=== PATIENT | female | born 1975 | race Caucasian/White ===

== ENCOUNTER 2021-08-16 12:25 | Emergency (ER) | payer OTHER ==
[2021-08-16 13:14] LABS: BASOPHIL 0.5 % (0-2); EOSINOPHIL 0.3 % (0-5); HCT 39.9 % (37.0-47.0); HGB 12.6 g/dl (12.5-16.0); LYMPHOCYTE 13.2 % (15-48); MCH 28.3 pg (25.0-31.0); MCHC 31.6 g/dL (32.0-36.0); MCV 89.5 fL (78.0-100.0); MONOCYTE 8.5 % (0-12); MPV 9.8 fL (6.0-9.5); NEUTROPHIL 77.2 % (41-80); NRBC 0; PLT 236 K/uL (150-400); RBC 4.46 M/uL (4.20-5.40); RDW 12.2 % (11.5-14.0); WBC 7.6 K/uL (4.0-10.5)
[2021-08-16 13:32] LABS: ALBUMIN 3.3 g/dL (3.4-5.0); BILIRUBIN - TOTAL 0.5 mg/dL (0.2-1.0); BUN/CREAT RATIO (CALC) 24.1 RATIO; CREATININE 0.58 mg/dL (0.51-0.95); GLOBULIN (CALCULATION) 3.9 g/dL; POTASSIUM 3.9 mmol/L (3.5-5.1); TOTAL PROTEIN 7.2 g/dL (6.4-8.2)
[2021-08-16 14:10] LABS: CORONAVIRUS 2019 SARS-COV-2 NEGATIVE (NEGATIVE); INFLUENZA A NAA NEGATIVE (NEGATIVE)
== END 2021-08-16 15:53 | disposition home or self-care (01) ==
LOC: FER 12:25
PROVIDERS: Physician Assistant
DX: R07.9 Chest pain, unspecified (principal); R05.9 Cough, unspecified; Z88.0 Allergy status to penicillin; Z91.040 Latex allergy status; Z20.822 Contact with and (suspected) exposure to COVID-19
CPT/HCPCS: 36415; 71045; 80053; 84484; 85025; 93005; U0002